=== PATIENT | female | born 2000 | race Caucasian/White ===

== ENCOUNTER 2024-09-28 15:22 | Outpatient (RCR) | payer BC, SELFPAY ==
--- NOTE | 2024-08-13 15:23 | MHC.OT.EP ---
[address] [phone] Occupational Therapy Plan of Care Patient Name: Clair Mckeon Date of Evaluation: 08/13/24 Diagnosis: Pain Location: SF volar side Pain Score: 6 Pain Scale Used: Numeric (0 - 10) Aggravating Factors: cold; weather ; gripping, pulling , rotation of hand/ digit Alleviating Factors: none reported attempts ice and ibuprofen Assessment: Pt is a 24 yr. old R hand dominant female whi reports lacerating her R SF/RF while trying to open a bag w/ a knife. Pt went to [facility] in [place] and had her SF/RF stitched. Pt reports decreased ability to make a composite fist and an increase in pain w/ use of her dominant hand. Pt saw Dr. Young who took X-rays and a MRI (07/28) no evidence of tendon laceration found. Pt was referred to skilled OT therapy to decrease pain and increase functional use of her Dominant hand. Frequency and Duration: The patient will be seen 2xs a week for 4 weeks Short Term Goals: Pt will be complaint w/ her HEP Pt will report 4/10 pain w/ activity of her R hand Pt will have LOPEZ of SF to [address] [employer] Goals: Pt will make a composite fist Pt will use her R hand to carry a shopping bag w/out pain Pt's DASH will be less than 20% Treatment Plan: Therapeutic Exercise Therapeutic Activity Home Exercise Program Splinting Neuro Re-ed Patient Education Desensitization/Sensory Re-ed Edema Control ADL Training Ultrasound NMES Iontophoresis Paraffin Fluidotherapy MHP Cold Packs Joint Mobilization Soft Tissue Mobilization Kinesiotaping Other (see comments) Electronically Signed By: Marlene Abrams OTR/L Please Sign and return to therapist. Thank you once again for your referral.
== END 2025-01-01 11:17 | disposition home or self-care (01) ==
LOC: HO.OT 15:22
PROVIDERS: PCP Student in an Organized Health Care Education/Training Program; Visit Provider Orthopaedic Surgery
DX: S56.19 Other injury of flexor muscle, fascia and tendon of other and unspecified finger at forearm level (principal)
CPT/HCPCS: 97035; 97110; 97140; 97165; 97535

== ENCOUNTER 2024-11-27 10:39 | Emergency (ER) | payer BC, SELFPAY ==
--- NOTE | ~2024-11-27 | CT_ITS ---
EXAMINATION: CT ABDOMEN PELVIS WITHOUT IV CONTRAST HISTORY: pain COMPARISON: There are no prior studies for comparison. TECHNIQUE: CT scan of the abdomen and pelvis was performed without contrast using standard departmental protocol. Coronal and sagittal reformatted images were generated and reviewed. Oral contrast material was not administered per department protocol. This CT exam was performed with one or more of the following dose reduction techniques: automated exposure control, adjustment of the mA and/or kV according to patient size, use of iterative reconstruction technique. DLP: 1460 mGy-cm FINDINGS: LOWER CHEST: The visualized lung bases are clear. There is no pleural effusion. CARDIOVASCULATURE: The heart is normal in size. There is no pericardial effusion. LIVER: The liver is normal in size and contour. The liver demonstrates decreased attenuation, consistent with steatosis. GALLBLADDER / BILE DUCTS: The gallbladder is unremarkable. There is no intra or extrahepatic biliary ductal dilatation. SPLEEN: The spleen is normal in size and has an unremarkable unenhanced appearance. PANCREAS: The pancreas has an unremarkable unenhanced appearance. ADRENAL GLANDS: Unremarkable. KIDNEYS/RETROPERITONEUM: No renal or ureteral calculi are identified. There is no hydronephrosis or hydroureter. LYMPH NODES: No retroperitoneal lymphadenopathy is identified in the abdomen or pelvis. VASCULATURE: The abdominal aorta is normal in caliber. MESENTERY/PERITONEUM: No free fluid. No masses. There is no free intraperitoneal gas. STOMACH: The stomach is collapsed, limiting evaluation. SMALL BOWEL: The small bowel is normal in caliber. COLON: The colon is unremarkable. APPENDIX: Normal. URINARY BLADDER/PELVIC ORGANS: The urinary bladder is unremarkable. The uterus and ovaries have an unremarkable unenhanced appearance. BONES / SOFT TISSUES: No suspicious bony or soft tissue abnormalities. CT/CT abdomen pelvis wo IV con IMPRESSION: 1. No evidence of nephrolithiasis or ureteral obstruction. 2. Hepatic steatosis. Electronically signed by: Robbie Maki MD 11/27/2024 03:19 PM EDT
[2024-11-27 11:03] VITALS: BP 108/74; PULSE 83; RESP 18; TEMP 37.1; O2SAT 97; BMI 50.6
[2024-11-27 11:47] LABS: MANUAL DIFF FLAG NO
[2024-11-27 11:50] LABS: Appearance Urine Clear; Color Urine Yellow; Glucose Urine UA Negative (Negative); Leukocyte Esterase Urine Negative (Negative); Nitrite Urine Negative (Negative); PH 5.5 (5.0-9.0); Specific Gravity - Urine 1.015 (1.005-1.025); UMIC TRIGGER UACC YES; Urine Blood Large (3+) (Negative); Urine Ketones Negative (Negative); Urine Protein Negative (Neg-Trace)
[2024-11-27 11:53] LABS: Basophils Percent Auto 0.3 % (0-2); Eosinophils Absolute Auto 0.1 X10*3/uL (0.0-0.4); Eosinophils Percent Auto 1.4 % (0-4); Hematocrit 42.5 % (37.0-47.0); Hemoglobin 13.6 g/dl (12.0-16.0); Imm Gran Abs Auto 0.04 X10*3/uL (0.00-0.03); Imm Gran Pct Auto 0.4 % (0.0-0.4); Lymphocytes Percent Auto 19.1 % (20-40); Mean Corpuscular Hemoglobin 28.5 pg (27.0-33.0); Mean Corpuscular Volume 88.9 fL (80.0-98.0); Mean Platelet Volume 9.1 fL (9.4-12.3); Monocytes Absolute Auto 0.7 X10*3/uL (0.1-1.2); Monocytes Percent Auto 6.9 % (2-11); Neutrophils Absolute Auto 7.4 x10*3/uL (2.0-8.3); Neutrophils Percent Auto 71.9 % (45-73); Platelet Count 396 X10*3/uL (160-400); Red Blood Count 4.78 X10*6/uL (4.20-5.50); Red Cell Distribution Width 12.2 % (11.0-16.0); White Blood Count 10.3 X10*3/uL (4.8-10.8)
[2024-11-27 11:54] LABS: UPreg QC Valid YES; Urine Pregnancy NEGATIVE (NEGATIVE)
[2024-11-27 11:55] LABS: Bacteria Urine None Seen (None Seen); Hyaline Casts Urine 0-2 /LPF (0-2); RBC Urine >20 /HPF (0-2); Squamous Epithelial Cell Urine 0-2 /HPF (0-2); WBC Urine 0-5 /HPF (0-5)
[2024-11-27 12:47] LABS: Alanine Aminotransferase 16 U/L (0-31); Albumin Level 4.1 g/dL (3.5-5.0); Alkaline Phosphatase 53 U/L (39-117); Anion Gap 9 (12-20); Aspartate Amino Transferase 13 U/L (5-31); Bilirubin Total 0.2 mg/dL (0.0-1.0); Blood Urea Nitrogen 14 mg/dL (9-16); Calcium 9.3 mg/dL (8.4-10.2); Carbon Dioxide 19 mmol/L (22-29); Chloride 116 mmol/L (96-108); Creatinine Clr Calc Pharmacy 172.3; Estimated Glomerular Filt Rate > 60; Glucose Random 75 mg/dL (60-115); Sodium 140 mmol/L (135-145); Total Protein 6.6 g/dL (6.5-8.0)
--- NOTE | 2024-11-27 14:45 | ED_ITS ---
HPI - General Adult General Chief complaint: Abdominal Pain Stated complaint: R side pain, blood in urine Time Seen by Provider: 11/27/24 16:10 Source: patient Mode of arrival: ambulatory Limitations: no limitations History of Present Illness HPI narrative: Patient is a 24 year old female who presents emergency department for evaluation. She endorses that last night she began experiencing left lower back/flank pain with difficulty urinating this morning. She presented to an urgent care for evaluation, she endorsed that she was eventually able to urinate but it was very dark in color, and states ?it looked like there was pink [place]alayan salt in the urine?, and she had notable pain with urination. At 1 point the pain got so bad to the flank that she was nauseous, and felt dizzy. The flank pain has significantly improved since its onset, has a mild dysuria now. Denies any history of nephrolithiasis. Denies fevers, chills, nausea, vomiting, precipitating injury, genitourinary symptoms, possibility for , LMP 1 week ago. Denies concern for sexually transmitted infections. Denies abnormal vaginal discharge or current bleeding. Related Data Allergies Allergy/AdvReac Type Severity Reaction Status Date / Time doxycycline AdvReac Swelling Verified 11/27/24 11:07 Review of Systems 2 Review of Systems: Yes all other systems are reviewed and are negative PMFSH Past Medical History Attestation statement: The following information was validated with the patient. Source: old records reviewed Social History Social History Advance Directives: No Advance Directives Information Provided: No Physical Exam ED Vital Signs: Vital Signs - 24 hr 11/27/24 11:03 11/27/24 17:20 Temperature 98.7 F 98.1 F Pulse Rate 83 71 Respiratory Rate 18 18 Blood Pressure 108/74 130/71 Pulse Oximetry 97 98 Oxygen Delivery Method Room Air Room Air BMI result Body Mass Index 50.6 Appearance: Alert.?Oriented to person, place and time. No acute distress.?Normal affect.?? Neck: Normal inspection.? Neck supple.?? CVS: Heart sounds normal. Normal heart rate and rhythm.? Pulses normal.?? Respiratory: No respiratory distress.? Lung sounds clear to auscultation bilaterally?? Abdomen: Soft and non-tender. No rebound tenderness at McBurney's point. Negative psoas sign. Negative Rovsing sign. Negative Shanks sign. Mild L CVAT. Normoactive bowel sounds. No pulsatile mass.?? Skin: Skin warm and dry.? Normal skin color.? Extremities: No lower extremity edema.? Neuro: Moves all extremities spontaneously. Sensation intact bilaterally. Ambulates with normal steady gait. Course Course Course Narrative: This is a rapid medical exam performed by Josefa Barboza PA-C. The patient is a 24-year-old female with a history of kidney stones who presents from urgent care given concern for renal colic. Patient has been having left flank pain with dysuria and hematuria. Screening labs were already ordered, ordering a CT scan now. The patient is stable and can return to the waiting room pending her full medical assessment. Medical Decision Making Medical Decision Making MDM Narrative: Patient is a 24 old female presents emergency department for evaluation of left flank pain and dysuria with microscopic hematuria as per HPI. No history of prior. On examination has a mild left CVA tenderness, pain has greatly improved since its onset last night, dysuria has also greatly improved. Urinalysis here does reveal evidence of microscopic hematuria without signs of infection. CBC is without leukocytosis anemia or thrombocytopenia. No significant electrolyte derangement. No CHARLY. LFTs are unremarkable. She had a CT of the abdomen and pelvis obtained prior to my assumption of care, which is without acute pathology, no evidence of urolithiasis, hydronephrosis. HCG is negative. Given her description of pain and microscopic hematuria, I suspect that she likely has a renal colic secondary to a recently passed stone. Advised conservative treatment, rest over the next few days ice/heat, ibuprofen/acetaminophen, and outpatient follow-up with PCP. Advised they may consider repeat urinalysis to check for resolution of microscopic hematuria and a persistent at their discretion they may consider urology consultation. Overall she is well- appearing at this time. Has a benign abdominal examination. No associated pelvic pain or abnormal vaginal discharge/bleeding/concerns for STI, no history of ovarian cyst and given significant improvement, lower suspicion for acute pathology of the nature. Overall well-appearing, nontoxic, afebrile. Differential Diagnosis Differential Diagnoses: The differential diagnosis associated with the presentation includes (See narrative above) Admission/Observation Consideration of admission/observation: Escalation of care including admission/observation considered (See narrative above ) Lab Data MDM Lab Attestation statement: I reviewed the patient's lab results. (See narrative above) 11/27/24 11:31 11/27/24 11:31 Labs: Lab Results 11/27/24 Range/Units 11:31 WBC 10.3 (4.8-10.8) X10*3/uL RBC 4.78 (4.20-5.50) X10*6/uL Hgb 13.6 (12.0-16.0) g/dl Hct 42.5 (37.0-47.0) % MCV 88.9 (80.0-98.0) fL MCH 28.5 (27.0-33.0) pg MCHC 32.0 (31.0-35.0) g/dl RDW 12.2 (11.0-16.0) % Plt Count 396 (160-400) X10*3/uL MPV 9.1 L (9.4-12.3) fL Immature Gran % (Auto) 0.4 (0.0-0.4) % Neut % (Auto) 71.9 (45-73) % Lymph % (Auto) 19.1 L (20-40) % [place] % (Auto) 6.9 (2-11) % Eos % (Auto) 1.4 (0-4) % Baso % (Auto) 0.3 (0-2) % Lymph # (Auto) 2.0 (1.2-4.9) X10*3/uL [place] # (Auto) 0.7 (0.1-1.2) X10*3/uL Eos # (Auto) 0.1 (0.0-0.4) X10*3/uL Baso # (Auto) 0.0 (0.0-0.2) X10*3/uL Abs Immat Gran (auto) 0.04 H (0.00-0.03) X10*3/uL Absolute Neuts (auto) 7.4 (2.0-8.3) x10*3/uL Absolute Nucleated RBC 0.000 (0.0-0.012) X10*3/uL Nucleated RBC % (auto) 0.0 (0.0-0.2) /100WBC Sodium 140 (135-145) mmol/L Potassium 4.0 (3.3-5.1) mmol/L Chloride 116 H (96-108) mmol/L Carbon Dioxide 19 L (22-29) mmol/L Anion Gap 9 L (12-20) BUN 14 (9-16) mg/dL Creatinine 0.76 (0.5-1.4) mg/dL Estim Creat Clear Calc 172.3 Estimated GFR > 60 Random Glucose 75 (60-115) mg/dL Calcium 9.3 (8.4-10.2) mg/dL Total Bilirubin 0.2 (0.0-1.0) mg/dL AST 13 (5-31) U/L ALT 16 (0-31) U/L Alkaline Phosphatase 53 (39-117) U/L Total Protein 6.6 (6.5-8.0) g/dL Albumin 4.1 (3.5-5.0) g/dL Urine Color Yellow Urine Appearance Clear Urine pH 5.5 (5.0-9.0) Ur Specific [place] 1.015 (1.005-1.025) Urine Protein Negative (Neg-Trace) mg/dL Urine Glucose (UA) Negative (Negative) mg/dL Urine Ketones Negative (Negative) mg/dL Urine Blood Large (3+) H (Negative) Urine Nitrite Negative (Negative) Ur Leukocyte Esterase Negative (Negative) Urine RBC >20 H (0-2) /HPF Urine WBC 0-5 (0-5) /HPF Ur Squamous Epith Cells 0-2 (0-2) /HPF Urine Bacteria None Seen (None Seen) Hyaline Casts 0-2 (0-2) /LPF Urine Test NEGATIVE (NEGATIVE) Independent Interpretation I performed an independent interpretation of an: CT Scan (No urolithiasis, no hydronephrosis) Radiology Impression Discussion of test interpretation with radiology: I have reviewed the radiologist's reading. Radiologist Impression: CT/CT abdomen pelvis wo IV con IMPRESSION: 1. No evidence of nephrolithiasis or ureteral obstruction. 2. Hepatic steatosis. External Record Review External record reviewed: Outpatient record Prescription Management I considered prescription management with: Other (See narrative above) Discharge Plan Discharge Clinical Impression: Acute flank pain, Hematuria, microscopic Patient Disposition: Home, Self-Care Instructions: Renal Colic (ED), Heat Pack Application (ED) Additional Instructions: As discussed, based on your described history, blood in the urine, concern that you may have recently passed a kidney stone. Subsequent pain is known as renal colic, rest of the next few days, apply ice/heat for 10-15 minutes 4-6 times daily. You can take ibuprofen 200 mg, 3 tablets (600mg) every 6-8 hours as needed for pain, in addition to Tylenol 500 mg, 2 tablets (1,000mg) every 4-6 hours as needed for pain, but not to exceed 3 doses daily (3,000mg).? Contact your primary care doctor's office tomorrow to arrange for a follow-up visit, as mentioned, they may consider at their discretion to repeat a urinalysis to check for microscopic hematuria plus/minus urology consultation if they feel necessary for persistent microscopic hematuria. You may return to emergency department any new or worsening symptoms or concerns. As mentioned, CT of the abdomen and pelvis today does not show any evidence of kidney stones at this time or acute abnormality. Referrals: Karely Soto MD [Primary Care Provider] - Stand Alone Forms: Work/School Release Discharge Date/Time: 11/27/24 17:37 Print Language: Portuguese
[2024-11-27 17:20] VITALS: BP 130/71; PULSE 71; RESP 18; TEMP 36.7; O2SAT 98
== END 2024-11-27 17:37 | disposition home or self-care (01) ==
PROVIDERS: Emergency Provider Emergency Medicine Emergency Medical Services; PCP Student in an Organized Health Care Education/Training Program
DX: R31.29 Other microscopic hematuria (principal); R10.9 Unspecified abdominal pain; R30.0 Dysuria; M54.50 Low back pain, unspecified
CPT/HCPCS: 36415; 74176; 80053; 81001; 81025; 85025; 99283; 99284

== ENCOUNTER → 2024-11-27 14:43 | Outpatient (BNV) | payer BC, SELFPAY | PROVIDERS: PCP Student in an Organized Health Care Education/Training Program; Visit Provider Radiology Diagnostic Radiology | DX: R10.9 Unspecified abdominal pain (principal) | CPT/HCPCS: 74176 ==

== ENCOUNTER 2024-12-14 14:30 | Outpatient (RCR) | payer BC, SELFPAY | END 2025-01-02 11:20 | disposition home or self-care (01) | LOC: HO.OT 14:30 | PROVIDERS: PCP Student in an Organized Health Care Education/Training Program; Visit Provider Orthopaedic Surgery | DX: S56.19 Other injury of flexor muscle, fascia and tendon of other and unspecified finger at forearm level (principal) | CPT/HCPCS: 29130; 97110; 97140; 97166; 97760 ==